=== PATIENT | female | born 1965 | race Caucasian/White ===

== ENCOUNTER → 2016-08-18 | Outpatient (CLI) | payer OTHER | LOC: BMCIMAGING 15:23 | PROVIDERS: ATTEND Orthopaedic Surgery | DX: S82.292D Other fracture of shaft of left tibia, subsequent encounter for closed fracture with routine healing (principal); Z96.652 Presence of left artificial knee joint ==

== ENCOUNTER 2017-03-18 17:51 | Inpatient (IN) | payer OTHER ==
--- NOTE | 2017-03-18 20:10 | EDPHY ---
H & P Stated Complaint: FELL INJURED L WRIST AND L ANKLE Time Seen by Provider: 03/18/17 19:50 HPI/ROS: CHIEF COMPLAINT: Left ankle and left wrist pain HISTORY OF PRESENT ILLNESS: 51-year-old female arrives via private vehicle, not a trauma activation, after she sustained a mechanical fall, complaining of left wrist and left ankle pain. She borrowed a neighbor's crutches and had a friend drive her to the ER. She is unable to bear weight under left lower extremity. No head injury. No peripheral paresthesia, weakness, numbness. No midline C-spine pain. No pelvic pain. No straddle injury. No chest pain. This was purely mechanical incident with no syncope. No anticoagulant use PRIMARY CARE PROVIDER: [facility] medical REVIEW OF SYSTEMS: A ten point review of systems was performed and is negative with the exception of the items mentioned in the HPI PAST MEDICAL/SURGICAL HISTORY: no anticoagulant use, SOCIAL HISTORY: Lives by herself. PHYSICAL EXAM 1) GENERAL: Well-developed, well-nourished, alert and oriented. Appears uncomfortable . Answering questions appropriately. 2) HEAD: Normocephalic, atraumatic 3) HEENT: Pupils equal, round, reactive to light bilaterally. Negative Horners. Nasopharynx, oropharynx, clear. No deformity or angulation of nose. No septal hematoma. No rhinorrhea. No oral trauma. Ears bilaterally with normal tympanic membranes. No hemotympanum. No fluid or blood in the external auditory canal. No raccoon eyes. No Ulrich sign. Teeth are normally aligned with no gross malocclusion, TMJ bilaterally nontender, facial bones nontender including the zygomatic arch, maxilla mandible. 4) NECK: No cervical collar is on. Posterior cervical spine is nontender, no stepoff, no effusion. Full range of motion which does not elicit any midline cervical spine pain, no posterior midline tenderness, no step-off. 5) LUNGS: Clear to auscultation bilaterally, no wheezes, no rhonchi, no retractions. No obvious signs of trauma. No chest wall pain. No flaring, no grunting. Moving symmetrically. No crepitus. 6) HEART: Regular rate and rhythm, 7) ABDOMEN: No guarding, no rebound, no focal tenderness, no peritoneal signs, no signs of trauma, no ecchymosis 8) MUSCULOSKELETAL: Left upper extremity: Intact skin, tender to palpation wrist. Nontender proximally with no evidence of trauma. Radial ulnar median nerve function intact distally with brisk pulses. Left lower extremity: Tender to palpation medial lateral malleolus with noted ecchymosis with noted deformity. No puncture wound. Intact skin. No tenting of skin. Foot is nontender. DP PT pulses present and brisk with brisk capillary refill normal color normal temperature distally. Proximally nontender. Knee nontender. Fibular head nontender. Knee nontender. Otherwise, remainder of musculoskeletal examination is unremarkable with no evidence of trauma no complaints of pain. 9) BACK: No midline vertebral tenderness, no fluctuance, no step-off, no obvious trauma, no visual or palpable abnormality. 10) SKIN: No laceration. No abrasion DIFFERENTIAL DIAGNOSIS: In no particular include but limited to fracture, dislocation, compartment syndrome, sprain, strain - Personal History LMP (Females 10-55): Post Menopausal Current Tetanus Diphtheria and Acellular Pertussis (TDAP): Yes Tetanus Vaccine Date: < 10 YEARS - Medical/Surgical History Hx Asthma: No Hx Chronic Respiratory Disease: No Hx Diabetes: No Hx Cardiac Disease: No Hx Renal Disease: No Hx Cirrhosis: No Hx Alcoholism: No Hx HIV/AIDS: No Hx Splenectomy or Spleen Trauma: No Other PMH: GERD, tibia plateau fx. - Social History Smoking Status: Current every day smoker Constitutional: Initial Vital Signs Temperature (C) 36.6 C 03/18/17 18:12 Heart Rate 72 03/18/17 18:12 Respiratory Rate 16 03/18/17 18:12 Blood Pressure 99/71 L 03/18/17 18:12 O2 Sat (%) 95 03/18/17 18:12 O2 Delivery Mode Room Air Allergies/Adverse Reactions: Penicillins Allergy (Verified 03/18/17 20:40) Swelling/neck,face,throat Sulfa (Sulfonamide Antibiotics) Allergy (Verified 03/18/17 20:40) Swelling/neck,face,throat WALNUT Allergy (Uncoded 03/18/17 18:17) Home Medications: Medication Instructions Recorded Acetaminophen [Tylenol 325mg (*)] 650 mg PO Q6H PRN 03/18/17 Fluoxetine HCl [Prozac 40 mg] 40 mg PO DAILY 03/18/17 Medical Decision Making - Diagnostics Imaging Results: Imaging Impressions Ankle X-Ray 03/18/17 18:20 Impression: 1. Unstable bimalleolar left ankle fracture with comminuted distal fibular fracture fragments. 2. Medial and lateral talar avulsion fractures also noted. Wrist X-Ray 03/18/17 18:20 Impression: 1. Comminuted impacted intra-articular distal left radius fracture with dorsal angulation. 2. Ulnar styloid fracture. Tibia/Fibula X-Ray 03/18/17 20:09 Impression: Unstable comminuted bimalleolar fracture of the left ankle with lateral displacement of the talus. Ankle X-Ray 03/18/17 21:26 Impression: Comminuted bimalleolar unstable left ankle fracture, with persistent lateral subluxation of the talar dome and displaced fragments. Wrist X-Ray 03/18/17 21:26 Impression: Improved alignment postreduction of comminuted distal left radius intra-articular fracture and ulnar styloid fracture. Images reviewed myself images Procedures: Procedure: Fracture reduction 1. Indication: Fracture of the left wrist Indications, risks and benefits discussed with patient and consent obtained. A hematoma block of 0.5% bupivicaine placed by myself. Traction and countertraction applied achieving a visible and palpable reduction. The area was splinted with an Ortho Glass sugar-tong splint. After application of the splint I returned and re-examined the patient. The splint was adequately immobilizing the joint and distal to the splint the patient's circulation and sensation were intact. Patient shows no signs of compartment syndrome. Procedure: Fracture reduction 2. Indication: Fracture of the left ankle Indications, risks and benefits discussed with patient and consent obtained.Traction and countertraction applied achieving a visible and palpable reduction. The area was splinted with a 3 way Ortho Glass above the knee splint After application of the splint I returned and re-examined the patient. The splint was adequately immobilizing the joint and distal to the splint the patient's circulation and sensation were intact. Patient shows no signs of compartment syndrome. ED Course/Re-evaluation: This patient has been re-evaluated with serial examinations both pre and post reduction. She remains neurovascularly intact no evidence of compartment syndrome, strong pulses, pain controlled. She remains NPO. Due to the complexity of the patient's injuries involving both her left upper and left lower extremity recommended admission which he is agreeable with. She has isolated orthopedic injuries. Plan will be admission to the hospitalist service. I discussed the case with secondary to superimposition Dr. Cee in the ER 10:00 p.m.: Phone consultation Dr. Andi Handy. Due to the patient's injuries, namely immobilization of the left upper and left lower extremities, she lives by herself, she is unable to ambulate with crutches, recommended admission. Consulted with Dr. Andi Handy at this time, he will plan on surgery tomorrow, recommended she remain NPO after midnight. 10:28 p.m.: Phone consultation with Dr. Silver, hospitalist who will admit patient - Data Points Laboratory Results: Laboratory Results 03/18/17 20:30 03/18/17 20:30 03/18/17 03/18/17 03/18/17 20:30 20:30 20:30 WBC 8.52 10^3/uL 10^3/uL (3.80-9.50) RBC 4.17 10^6/uL L 10^6/uL (4.18-5.33) Hgb 15.3 g/dL g/dL (12.6-16.3) Hct 42.8 % % (38.0-47.0) MCV 102.6 fL H fL (81.5-99.8) MCH 36.7 pg H pg (27.9-34.1) MCHC 35.7 g/dL g/dL (32.4-36.7) RDW 12.3 % % (11.5-15.2) Plt Count 122 10^3/uL L 10^3/uL (150-400) MPV 10.0 fL fL (8.7-11.7) Neut % (Auto) 83.1 % H % (39.3-74.2) Lymph % (Auto) 10.1 % L % (15.0-45.0) [place] % (Auto) 5.8 % % (4.5-13.0) Eos % (Auto) 0.0 % L % (0.6-7.6) Baso % (Auto) 0.6 % % (0.3-1.7) Nucleat RBC Rel Count 0.0 % % (0.0-0.2) Absolute Neuts (auto) 7.09 10^3/uL H 10^3/uL (1.70-6.50) Absolute Lymphs (auto) 0.86 10^3/uL L 10^3/uL (1.00-3.00) Absolute Monos (auto) 0.49 10^3/uL 10^3/uL (0.30-0.80) Absolute Eos (auto) 0.00 10^3/uL L 10^3/uL (0.03-0.40) Absolute Basos (auto) 0.05 10^3/uL 10^3/uL (0.02-0.10) Absolute Nucleated RBC 0.00 10^3/uL 10^3/uL (0-0.01) Immature Gran % 0.4 % % (0.0-1.1) Immature Gran # 0.03 10^3/uL 10^3/uL (0.00-0.10) PT 13.3 SEC SEC (12.0-15.0) INR 1.02 (0.83-1.16) APTT 22.4 SEC L SEC (23.0-38.0) Sodium 138 mEq/L mEq/L (134-144) Potassium 4.1 mEq/L mEq/L (3.5-5.2) Chloride 104 mEq/L mEq/L (97-110) Carbon Dioxide 16 mEq/l L mEq/l (22-31) Anion Gap 18 mEq/L H mEq/L (8-16) BUN 8 mg/dL mg/dL (7-23) Creatinine 0.5 mg/dL L mg/dL (0.6-1.0) Estimated GFR > 60 Glucose 92 mg/dL mg/dL (70-100) Calcium 9.9 mg/dL mg/dL (8.5-10.4) Medications Given: Discontinued Medications Fentanyl (Sublimaze) 100 mcg IVP EDNOW ONE Stop: 03/18/17 20:14 Last Admin: 03/18/17 20:39 Dose: 100 mcg Departure - Departure Disposition: [facility] Clinical Impression: Closed bimalleolar fracture of left ankle Qualifiers: Encounter type: initial encounter Qualified Code(s): S82.842A - Displaced bimalleolar fracture of left lower leg, initial encounter for closed fracture Fracture of left distal radius Qualifiers: Encounter type: initial encounter Fracture type: closed Fracture morphology: other intra-articular Qualified Code(s): S52.572A - Other intraarticular fracture of lower end of left radius, initial encounter for closed fracture Condition: Fair
[2017-03-18] MEDS ORDERED: fentaNYL 100 MCG/2 ML INJ IVP ONE (20:13)
[2017-03-18 20:46] LABS: % IMMATURE GRANULYOCYTES 0.4 % (0.0-1.1); ABSOLUTE IMMATURE GRANULOCYTES 0.03 10^3/uL (0.00-0.10); ADD DIFF? NO; ADD MORPH? NO; ADD SCAN? NO; ATYPICAL LYMPHOCYTE FLAG 10 (0-99); FRAGMENT RBC FLAG 0 (0-99); HEMATOCRIT 42.8 % (38.0-47.0); HEMOGLOBIN 15.3 g/dL (12.6-16.3); LEFT SHIFT FLG 0 (0-99); LIPEMIA HEMOLYSIS FLAG 90 (0-99); MEAN CELL HEMOGLOBIN 36.7 pg (27.9-34.1); MEAN CELL HEMOGLOBIN CONCENTR. 35.7 g/dL (32.4-36.7); MEAN CELL VOLUME 102.6 fL (81.5-99.8); PLATELET CLUMPS FLAG 0 (0-99); PLATELET COUNT 122 10^3/uL (150-400); RED BLOOD CELL COUNT 4.17 10^6/uL (4.18-5.33); RED CELL DISTRIBUTION WIDTH 12.3 % (11.5-15.2)
[2017-03-18 20:55] LABS: INR 1.02 (0.83-1.16); PROTIME(PATIENT) 13.3 SEC (12.0-15.0)
[2017-03-18 20:56] LABS: APTT 22.4 SEC (23.0-38.0)
[2017-03-18 21:02] LABS: ANION GAP 18 mEq/L (8-16); CALCIUM 9.9 mg/dL (8.5-10.4); CARBON DIOXIDE 16 mEq/l (22-31); CHLORIDE 104 mEq/L (97-110); CREATININE 0.5 mg/dL (0.6-1.0); GLOMERULAR FILTRATION RATE > 60; GLUCOSE 92 mg/dL (70-100); POTASSIUM 4.1 mEq/L (3.5-5.2); SODIUM 138 mEq/L (134-144)
[2017-03-18] MEDS ORDERED: PROMETHAZINE HCL 25 MG/ML INJ IVP PRN (23:14)
[2017-03-18] MEDS ORDERED: NICOTINE 14 MG/24 HR PATCH TD PRN (23:14)
[2017-03-18] MEDS ORDERED: ACETAMINOPHEN 325 MG TAB PO PRN (23:14)
[2017-03-18] MEDS ORDERED: LORazepam 2 MG/ML INJ IVP PRN (23:14)
[2017-03-18] MEDS ORDERED: LORazepam 0.5 MG TAB PO PRN (23:14)
[2017-03-18] MEDS ORDERED: ONDANSETRON DISINTEGRATING 4 MG TAB PO PRN (23:14)
[2017-03-18] MEDS ORDERED: ACETAMINOPHEN 650 MG SUPP PR PRN (23:14)
[2017-03-18] MEDS ORDERED: ONDANSETRON 4 MG/2 ML VIAL IVP PRN (23:14)
[2017-03-19] MEDS: HYDROCODONE/APAP 5/325 TAB PO PRN ×3 (00:31→21:26)
--- NOTE | 2017-03-19 00:38 | GHP ---
[f rep st] HISTORY AND PHYSICAL DATE OF ADMISSION: 03/18/2017 SOURCE OF HISTORY: Patient provides history, appears reliable. Her EMR was also reviewed. CHIEF COMPLAINT: Left wrist and left ankle pain after fall. HISTORY OF PRESENT ILLNESS: A very pleasant 51-year-old female with past medical history significant for anxiety and depression, who presents to the emergency department today by private vehicle follow ing a mechanical fall at home. Patient reports that she was moving items from her home to her car, a nd there were several cement steps, and she feels like her knee may have given out, and she fell on h er left side. Patient subsequently had left wrist and left ankle pain. She denies any preceding jayce st pain, palpitations, shortness of breath, or lightheadedness. Patient denies any head injury or lo ss of consciousness. The patient was able to get a ride from a friend to the emergency department, b ut does live alone. REVIEW OF SYSTEMS: GENERAL: The patient reports occasional sweats and she is unsure if this is rela aleksander to anxiety or panic versus premenopausal flushing. She denies any fevers or chills, however. SK IN: No rashes or sores. ENT: Patient denies any congestion, sore throat. EYES: Patient reports p rogressive decline in vision and wears readers and glasses for driving. Otherwise, no acute changes in vision. CARDIOVASCULAR: No chest pain, palpitations. RESPIRATORY: No shortness of breath or co ugh. GI: Patient does report some underlying chronic nausea that is exacerbated by her anxiety. Sh e reports constant stomach upset related to anxiety symptoms. She denies any melena or hematochezia. : No dysuria or hematuria. MUSCULOSKELETAL: Patient complaining of left wrist and left ankle p ain. Otherwise, denies any myalgias. NEURO: Patient denies any headache. No numbness or tingling. PSYCH: Patient reports anxiety, depression. Denies any SI or HI. ALLERGIES: Penicillin, sulfa, and walnuts. Patient reports she develops some throat tingling, itchi ng and swelling. She reports a previous history of exposure to cephalosporins without any incident. MEDICATIONS: Patient has a recent increase in her fluoxetine from 20-40 mg, and Tylenol p.r.n., occa sional multivitamin. PAST MEDICAL HISTORY: Significant for depression, anxiety, and the patient reports she had a postope rative wound infection with Staph that is possibly MRSA. PAST SURGICAL HISTORY: Significant for tibial plateau fracture in 2016, status post revision with pa rtial knee replacement per the patient. FAMILY HISTORY: Patient denies any known osteoporosis, diabetes, coronary artery disease, or other m edical issues. SOCIAL HISTORY: Patient is single. She lives alone. She does smoke approximately 1 pack per day fo r the past 30 years. She denies any illicit drug use or marijuana. The patient does drink 2-3 glass es of wine on a daily basis, and denies any history of withdrawal symptoms. PHYSICAL EXAM: VITAL SIGNS: On arrival to the emergency department, blood pressure 99/71, heart rat e 72, respiratory rate 16, O2 saturation 95% on room air with a temperature 36.6. Current vitals: B lood pressure 119/65, heart rate 75, respiratory rate 16, O2 saturation 94% on room air, with a temp of 37.1. GENERAL: No acute distress. Very pleasant adult female, is lying comfortably in bed, eati ng a snack. Her left arm including the hand and left lower extremity are in a splint. HEAD: Normoc ephalic, atraumatic. EYES: Extraocular muscles are intact. Pupils equal, round, with the left pupi l slightly larger than the right, but reactive to light. No scleral icterus, conjunctival injection. ENT: Mucous membranes appear moist. No oropharyngeal erythema or exudates. NECK: Supple. Trach ea midline. CARDIOVASCULAR: Regular rate and rhythm. No murmurs, rubs, or gallops appreciated. RE SPIRATORY: Lungs are clear to auscultation bilaterally. No wheezes, rales, or rhonchi. ABDOMEN: P ositive bowel sounds. Soft, nontender to palpation. No rebound, guarding or masses. : No suprap ubic tenderness to palpation. No Michael catheter in place. MUSCULOSKELETAL: Left arm and left lower extremity are in splint. She is able to move her right upper and lower extremity unrestricted. Sen sation is intact to the distal upper and lower extremity on the left with less than 2-second capillar y refill. NEURO: Cranial nerves 2-12 intact, symmetric bilaterally. Patient is awake, alert, orien aleksander x4. Able to move all extremities with limitations to the splinted left arm and leg. PSYCH: The patient does appear a little bit anxious, but she is pleasant, cooperative and otherwise appropriate . LABORATORY STUDIES: WBC 8.52, H and H 13.3 and 42.8, MCV of 102.6, platelet count 122, neutrophil pe rcent 83.1 without any noted bandemia. PT is 13.3, INR 1.02, PTT is 22.4. Sodium 138, potassium 4.1 , chloride 104, CO2 16, anion gap 18, BUN 8, creatinine 0.5, GFR of greater than 60, glucose 92, calc ium 9.9. IMAGING: Report and image reviewed by myself, showing unstable bimalleolar left ankle fracture with comminuted distal fibular fracture fragments, medial and lateral talar avulsion fractures. Left wrist x-ray showing comminuted impacted intra-articular distal left radius fracture with dorsal angulation. Ulnar styloid fracture. Imaging and report reviewed. Tib-fib x-ray showing again the unstable comminuted bimalleolar fracture, left ankle and comminuted o blique distal left fibular fracture, transverse fracture of the distal tibia and medial malleolus. L eft knee hemiarthroplasty. No fracture of the mid tibia or fibula. ASSESSMENT AND PLAN: This is a pleasant 51-year-old female status post mechanical fall, now with lef t wrist and ankle fracture. 1. Bimalleolar fracture, status post reduction, in splint. Dr. Handy was consulted from the emerge ncy department and plans to take the patient to the operating room tomorrow. She will be made n.p.o. , holding anticoagulation. We will obtain an MRSA nasal swab as patient reports a staph infection pr eviously. She is unclear if it was methicillin-resistant Staphylococcus aureus. 2. Left wrist fracture, status post reduction. Same plan as above. 3. Acute pain due to trauma, status post dose of fentanyl in the emergency department. We will make [place] and morphine available for the patient p.r.n., currently comfortable. 4. History of wound infection, possibly methicillin-resistant Staphylococcus aureus. Will obtain a nasal swab preoperatively. 5. Anxiety and depression. Resume patient's fluoxetine. We will obtain a preoperative EKG, given p atient's dosage has been increased. 6. Tobacco dependence of 30 pack-year history. Nicotine patch will be made available p.r.n. Cessat ion will be encouraged. 7. History of alcohol use daily. The patient drinks 2-3 glasses of wine on a daily basis. Denies a ny previous history of withdrawal. Will monitor closely. She does have Ativan p.r.n. for her anxiet y. 8. Fluid, electrolytes, nutrition: Patient will receive intravenous fluids overnight while she is n il per os. Electrolytes will be replaced if needed. The patient has diet at bedside currently, will be nil per os after midnight. 9. Prophylaxis. Sequential compression device to the right lower extremity, holding anticoagulation perioperatively. 10. Code status is full. 11. Disposition: Patient admitted to observation on the Med/Surg floor as she lives alone and almaz cline is unable to ambulate with her current fracture on the left upper and lower extremity. 12. The patient appears to be low cardiac risk for complications related to surgery. There are no c ontraindications to proceed tomorrow. Again, will obtain a preoperative electrocardiogram to evaluat e as patient is chronically on fluoxetine and may be receiving additional medications potentially pro longing QT, so we will evaluate for this. /[id number]/MODL
[2017-03-19] MEDS: NS 1,000 ML IV SCH ×2 (01:03→09:59)
[2017-03-19 01:06] LABS: COLOR YELLOW; LEUKOCYTE ESTERASE,URINE 3+ (NEGATIVE); NITRITE,URINE NEGATIVE (NEGATIVE)
[2017-03-19 01:08] LABS: BACTERIA TRACE /hpf (NONE SEEN); MUCUS 1+ /lpf (NONE-1+); RBC,URINE 25-50 /hpf (0-3); WBC,URINE 25-50 /hpf (0-3)
[2017-03-19 05:19] LABS: % IMMATURE GRANULYOCYTES 1.4 % (0.0-1.1); ABSOLUTE IMMATURE GRANULOCYTES 0.11 10^3/uL (0.00-0.10); ADD DIFF? NO; ADD MORPH? NO; ADD SCAN? NO; ATYPICAL LYMPHOCYTE FLAG 40 (0-99); FRAGMENT RBC FLAG 0 (0-99); HEMATOCRIT 40.1 % (38.0-47.0); HEMOGLOBIN 14.1 g/dL (12.6-16.3); LEFT SHIFT FLG 10 (0-99); LIPEMIA HEMOLYSIS FLAG 90 (0-99); MEAN CELL HEMOGLOBIN 36.2 pg (27.9-34.1); MEAN CELL HEMOGLOBIN CONCENTR. 35.2 g/dL (32.4-36.7); MEAN CELL VOLUME 103.1 fL (81.5-99.8); MEAN PLATELET VOLUME 10.2 fL (8.7-11.7); PLATELET CLUMPS FLAG 0 (0-99); PLATELET COUNT 112 10^3/uL (150-400); RED BLOOD CELL COUNT 3.89 10^6/uL (4.18-5.33); RED CELL DISTRIBUTION WIDTH 12.2 % (11.5-15.2)
[2017-03-19 05:23] LABS: INR 1.05 (0.83-1.16); PROTIME(PATIENT) 13.6 SEC (12.0-15.0)
[2017-03-19 05:24] LABS: APTT 24.2 SEC (23.0-38.0)
[2017-03-19 05:31] LABS: ANION GAP 13 mEq/L (8-16); CARBON DIOXIDE 20 mEq/l (22-31); CHLORIDE 101 mEq/L (97-110); CREATININE 0.6 mg/dL (0.6-1.0); GLOMERULAR FILTRATION RATE > 60; GLUCOSE 91 mg/dL (70-100); POTASSIUM 4.1 mEq/L (3.5-5.2); SODIUM 134 mEq/L (134-144)
--- NOTE | 2017-03-19 07:07 | GCON ---
[f rep st] CONSULTATION DATE OF CONSULTATION: 03/19/2017 REASON FOR CONSULTATION: Left ankle, left wrist injury. HISTORY RELATIVE TO THE CONSULTATION: The patient is a 51-year-old right-hand dominant woman who ashley tained a fall down some stairs resulting in left ankle and left wrist pain and deformity. She presen aleksander to the emergency room with difficulty weightbearing. She does have a history of previous left ti bial fracture which was treated with open reduction, internal fixation in 2014. EXAMINATION: The left ankle is in a well-padded splint. Upon partial removal, there is moderate swe lling with no blistering or gross deformity. Her distal neurovascular exam is intact. Examination l eft upper extremity reveals it to be in a well-padded sugar-tong splint. There is moderate swelling in her fingers. Radial, ulnar, and median nerves are grossly intact with no evidence of median nerve compression. IMAGING: AP and lateral radiographs of the left ankle show a left trimalleolar ankle fracture with i nitial displacement which is now unfavorable alignment in a well-padded splint. AP and lateral radio graphs of the left wrist show evidence of a comminuted intra-articular left distal radius fracture wi th impaction and dorsal angulation. ASSESSMENT: 1. Left trimalleolar ankle fracture. 2. Left distal radius fracture. PLAN: Based on the displaced intra-articular natures of the injuries, it is recommended operative tr eatment consisting of open reduction, internal fixation of both these be pursued. This will be sched uled for later today. /[id number]/MODL
[2017-03-19] MEDS: FLUoxetine 20 MG CAP PO SCH (08:44)
--- NOTE | 2017-03-19 08:48 | HOSPPROG ---
Hospitalist Progress Note Assessment/Plan: Patient is a 51-year-old female who presented the emergency room after sustaining a mechanical fall at home. She is moving items from her home to her car and there are several steps. She feels like her knee may have given out and she fell. Today is my 1st encounter with the patient. Chart reviewed. *Bimalleolar fx Status post reduction and in a splint To go to OR today *Left wrist fx same as the above/ OR today w Dr Handy *Pain due to the above meds ordered *Anxiety and Depression home meds resumed *hx of wound infection will monitor s/sx *nicotine dependence patch provided *alcohol use drinks wine at night/ 2-3 glasses *Plan: OR today/ she lives alone so will need help at dc/will see how she does w PT and OT Subjective: Afshan says her pain is well managed. Objective: Vital Signs Temp Pulse Resp BP Pulse Ox 37.0 C 75 16 155/95 H 95 03/19/17 08:28 03/19/17 08:28 03/19/17 08:28 03/19/17 08:28 03/19/17 08:28 Laboratory Results 03/19/17 04:47 03/19/17 04:47 PT 13.6 SEC (12.0-15.0) 03/19/17 04:47 INR 1.05 (0.83-1.16) 03/19/17 04:47 - Physical Exam Constitutional: no apparent distress Eyes: PERRL Ears, Nose, Mouth, Throat: hearing normal Respiratory: no respiratory distress Gastrointestinal: normoactive bowel sounds Skin: warm Musculoskeletal: muscular tenderness Neurologic: AAOx3 Psychiatric: interacting appropriately ICD10 Worksheet Patient Problems: Problems Problem Status Onset Closed bimalleolar fracture of left ankle Acute Fracture of left distal radius Acute Tibial plateau fracture Acute
[2017-03-19] MEDS ORDERED: CLINDAMYCIN 600 MG/DEXTROSE 50 ML IV ONE (14:55)
[2017-03-19] MEDS ORDERED: morphINE PCA 30 MG/30 ML PCA IV PRN (15:04)
[2017-03-19] MEDS ORDERED: NALOXONE HCL 0.4 MG/ML INJ IVP PRN ×2 (15:04→18:38)
--- NOTE | 2017-03-19 15:12 | POSTOPPROG ---
Post Op Note Date of Operation: 03/19/17 Surgeon: Andi Handy Anesthesia: GET(General Endotracheal) Pre-op Diagnosis: L distal radius fx, L trimalleilar ankle fx Post-op Diagnosis: same Procedure: ORIF L distal radius, ORIF L trimalleolar fx Inf/Abcess present in the surg proc area at time of surgery?: No EBL: Minimal
[2017-03-19] MEDS ORDERED: D5W 1/2 NS W/ 20 KCl/L 1,000 ML IV SCH (15:15)
[2017-03-19] MEDS ORDERED: MIDAZOLAM 2 MG/2 ML VIAL IVP ONE (15:24)
--- NOTE | 2017-03-19 15:24 | PDANEPAE ---
ANE History of Present Illness L wrist and ankle ORIF ANE Past Medical History - Cardiovascular History Hx Hypertension: No Hx Arrhythmias: No Hx Chest Pain: No Hx Coronary Artery / Peripheral Vascular Disease: No Hx CHF / Valvular Disease: No Hx Palpitations: No - Pulmonary History Hx COPD: No Hx Asthma/Reactive Airway Disease: No Hx Recent Upper Respiratory Infection: No Hx Oxygen in Use at Home: No Hx Sleep Apnea: No Sleep Apnea Screening Result - Last Documented: Positive - Neurologic History Hx Cerebrovascular Accident: No Hx Seizures: No Hx Dementia: No - Endocrine History Hx Diabetes: No - Renal History Hx Renal Disorders: No - Liver History Hx Hepatic Disorders: No - Neurological & Psychiatric Hx Hx Neurological and Psychiatric Disorders: No - Cancer History Hx Cancer: No - Congenital Disorder History Hx Congenital Disorders: No - GI History Hx Gastrointestinal Disorders: Yes Gastrointestinal History Comment: gerd - Other Health History Other Health History: none - Chronic Pain History Chronic Pain: No - Surgical History Prior Surgeries: egd. orif right tibial plateau fx with lynne 06/16/14 ANE Review of Systems Review of systems is: negative Review of Systems: - Exercise capacity Exercise capacity: >=4 METS ANE Patient History - Allergies Allergies/Adverse Reactions: Penicillins Allergy (Verified 03/18/17 20:40) Swelling/neck,face,throat Sulfa (Sulfonamide Antibiotics) Allergy (Verified 03/18/17 20:40) Swelling/neck,face,throat WALNUT Allergy (Uncoded 03/18/17 18:17) - Home Medications Home medications: home medication list seen and reviewed Home Medications: Acetaminophen [Tylenol 325mg (*)] 650 mg PO Q6H PRN 03/18/17 [Last Taken Unknown ] Fluoxetine HCl [Prozac 40 mg] 40 mg PO DAILY 03/18/17 [Last Taken 03/18/17] - NPO status NPO Status: no food or drink >8 hours NPO Since - Liquids (Date): 03/18/17 NPO Since - Liquids (Time): 12:05 NPO Since - Solids (Date): 03/18/17 NPO Since - Solids (Time): 23:45 - Anes Hx Anes Hx: no prior problems - Smoking Hx Smoking Status: Current every day smoker - Family Anes Hx Family Anes Hx: none Family Hx Anesthesia Complications: none ANE Labs/Vital Signs - Labs Result Diagrams: 03/19/17 04:47 03/19/17 04:47 - Vital Signs Blood Pressure: 178/99 Heart Rate: 68 Respiratory Rate: 14 O2 Sat (%): 93 Height: 160.02 cm Weight: 61.235 kg ANE Physical Exam - Airway Neck exam: FROM Mallampati Score: Class 3 Mouth exam: normal dental/mouth exam - Pulmonary Pulmonary: no respiratory distress - Cardiovascular Cardiovascular: regular rate and rhythym - ASA Status ASA Status: II ANE Anesthesia Plan Anesthesia Plan: GA w LMA
[2017-03-19] MEDS ORDERED: BUPIVACAINE 0.5% 30 ML SDV ONE (15:26)
[2017-03-19] MEDS ORDERED: MIDAZOLAM 2 MG/2 ML VIAL ONE (15:39)
[2017-03-19] MEDS ORDERED: PROPOFOL 200 MG/20 ML VIAL ONE (15:48)
[2017-03-19] MEDS ORDERED: ONDANSETRON 4 MG/2 ML VIAL ONE (15:48)
[2017-03-19] MEDS ORDERED: DEXAMETHASONE 4 MG/ML VIAL ONE (15:48)
[2017-03-19] MEDS ORDERED: LIDOCAINE 2% 100 MG/5 ML SYR ONE (15:48)
[2017-03-19] MEDS ORDERED: HYDROmorphONE/DILAUDID 2 MG/ML INJ ONE (16:03)
[2017-03-19] MEDS ORDERED: PROMETHAZINE HCL 25 MG/ML INJ IVP PRN (18:38)
[2017-03-19] MEDS ORDERED: OXYCODONE/APAP 5/325 TAB PO PRN (18:38)
[2017-03-19] MEDS ORDERED: fentaNYL 100 MCG/2 ML INJ IVP PRN (18:38)
[2017-03-19] MEDS ORDERED: ONDANSETRON 4 MG/2 ML VIAL IVP PRN (18:38)
[2017-03-19] MEDS ORDERED: ACETAMINOPHEN 500 MG TAB PO PRN (18:38)
[2017-03-19] MEDS ORDERED: MEPERIDINE 25 MG/ML SYR IVP PRN (18:38)
[2017-03-19] MEDS ORDERED: ALBUTEROL 3 ML DEYVIAL IH PRN (18:38)
[2017-03-19] MEDS ORDERED: DEXAMETHASONE 4 MG/ML VIAL IVP PRN (18:38)
[2017-03-19] MEDS ORDERED: HYDROCODONE/APAP 5/325 TAB PO PRN (18:38)
[2017-03-19] MEDS ORDERED: HYDROmorphONE/DILAUDID 1 MG/ML INJ IVP PRN (18:38)
--- NOTE | 2017-03-19 18:40 | POSTANESTH ---
Post Anesthetic Evaluation Cardiovascular Status: Similar to Pre-Op Cond Respiratory Status: Normal, Stable, Similar to Pre-op Cond. Level of Consciousness/Mental Status: Can Participate in Eval, Mildly Sleepy, Arousable Pain Control: Adequate, Prn Tx Ordered Nausea/Vomiting Control: Adequate, Prn Tx Ordered
--- NOTE | 2017-03-19 19:04 | ASMTCMCOM ---
CM Note CM Note Notes: Pt fell at home, lives alone, has hx anxiety/depression and drinks 2-3 glasses wine daily per H&P. She went to surg today, will see how she does w/therapies tomorrow and plan for dc as needed. Date Signed: 03/19/2017 07:04 PM Electronically Signed By:Shasha Lindo RN
[2017-03-19] MEDS ORDERED: LABETALOL HCL 5 MG/ML 20 ML MDV ONE (19:07)
[2017-03-19] MEDS: LABETALOL HCL 50 MG/10 ML SYR IVP PRN ×2 (19:09→19:31)
[2017-03-19] MEDS: CLINDAMYCIN 600 MG/DEXTROSE 50 ML IV SCH (21:23)
[2017-03-20] MEDS: HYDROCODONE/APAP 5/325 TAB PO PRN ×5 (03:49→20:44)
[2017-03-20] MEDS: CLINDAMYCIN 600 MG/DEXTROSE 50 ML IV SCH ×2 (05:14→13:20)
[2017-03-20 05:30] LABS: % IMMATURE GRANULYOCYTES 0.5 % (0.0-1.1); ABSOLUTE IMMATURE GRANULOCYTES 0.03 10^3/uL (0.00-0.10); ADD DIFF? NO; ADD MORPH? NO; ADD SCAN? NO; ATYPICAL LYMPHOCYTE FLAG 0 (0-99); FRAGMENT RBC FLAG 0 (0-99); HEMOGLOBIN 12.6 g/dL (12.6-16.3); LEFT SHIFT FLG 0 (0-99); LIPEMIA HEMOLYSIS FLAG 90 (0-99); MEAN CELL HEMOGLOBIN 36.5 pg (27.9-34.1); MEAN CELL VOLUME 104.3 fL (81.5-99.8); MEAN PLATELET VOLUME 10.7 fL (8.7-11.7); PLATELET CLUMPS FLAG 10 (0-99); PLATELET COUNT 101 10^3/uL (150-400); RED BLOOD CELL COUNT 3.45 10^6/uL (4.18-5.33); RED CELL DISTRIBUTION WIDTH 11.8 % (11.5-15.2)
[2017-03-20 05:49] LABS: ALANINE AMINOTRANSFERASE 83 IU/L (9-52); ALBUMIN 3.5 g/dL (3.5-5.0); ALKALINE PHOSPHATASE 70 IU/L (38-126); ANION GAP 8 mEq/L (8-16); ASPARTATE AMINOTRANSFERASE 46 IU/L (14-46); CALCIUM 8.8 mg/dL (8.5-10.4); CARBON DIOXIDE 23 mEq/l (22-31); CHLORIDE 99 mEq/L (97-110); CREATININE 0.6 mg/dL (0.6-1.0); GLOMERULAR FILTRATION RATE > 60; GLUCOSE 216 mg/dL (70-100); POTASSIUM 4.4 mEq/L (3.5-5.2); SODIUM 130 mEq/L (134-144); TOTAL PROTEIN 5.9 g/dL (6.3-8.2)
[2017-03-20] MEDS ORDERED: FLU VACC QS 2017-18 (3YR+)/PF 0.5 ML SYR (FLUARIX QUAD) IM ONE (06:59)
[2017-03-20] MEDS ORDERED: PNEUMOCOCCAL 0.5ML VACCINE VIAL IM ONE (06:59)
[2017-03-20] MEDS: FLUoxetine 20 MG CAP PO SCH (08:37)
--- NOTE | 2017-03-20 09:27 | SOAPPROG ---
SOAP Progress Note Assessment/Plan: Assessment: S/P ORIF L distal radius / L trimalleolar ankle fx Pain tolerable el po up with PT Splints intact No D/C L fingers and toes with good cap refill, + sensation Able to flex/ext fingers and toes Plan: OOB/PT OK for D/C or transfer toSNF or rehab from ortho standpoint when medically stable F/U 03/28/17 03/20/17 09:24 Objective: Vital Signs Temp Pulse Resp BP Pulse Ox 36.7 C 71 17 141/96 H 93 03/20/17 07:52 03/20/17 07:52 03/20/17 07:52 03/20/17 07:52 03/20/17 07:52 Laboratory Results 03/20/17 04:34 03/20/17 04:34 03/19/17 03/20/17 03/21/17 05:59 05:59 05:59 Intake Total 2000 Output Total 900 Balance 1100 PT 13.6 SEC (12.0-15.0) 03/19/17 04:47 INR 1.05 (0.83-1.16) 03/19/17 04:47 ICD10 Worksheet Patient Problems: Problems Problem Status Onset Closed bimalleolar fracture of left ankle Acute Fracture of left distal radius Acute Tibial plateau fracture Acute
--- NOTE | 2017-03-20 09:30 | HOSPPROG ---
Hospitalist Progress Note Assessment/Plan: Afshan is a 51-year-old female who presented the emergency room after sustaining a mechanical fall at home. She is moving items from her home to her car and there are several steps. She feels like her knee may have given out and she fell. *Bimalleolar fx Status post ORIF *Left wrist fx Status post ORIF meds ordered *Anxiety and Depression home meds resumed/Prozac resumed has a therapist she sees in the OP setting asked Dayanara Marcel to see * hyponatremia with a sodium of 130 *hx of wound infection will monitor s/sx *nicotine dependence patch provided *alcohol use drinks wine at night/ 2-3 glasses ordered a glass of wine w dinner *Plan: patient will require another midnight stay which will make her IP status / having fx on left side, both upper and lower ext will make it difficult to do ADL's/ IP rehab evaluation ordered. she lives alone. Patient currently on medical leave from work and was to return Tuesday/ unlikely to do this/ will have CM get involved and f/u with her employer. Subjective: Afshan said her pain is well managed. Objective: Vital Signs Temp Pulse Resp BP Pulse Ox 36.7 C 71 17 141/96 H 93 03/20/17 07:52 03/20/17 07:52 03/20/17 07:52 03/20/17 07:52 03/20/17 07:52 Laboratory Results 03/20/17 04:34 03/20/17 04:34 03/19/17 03/20/17 03/21/17 05:59 05:59 05:59 Intake Total 2000 Output Total 900 Balance 1100 PT 13.6 SEC (12.0-15.0) 03/19/17 04:47 INR 1.05 (0.83-1.16) 03/19/17 04:47 - Physical Exam Constitutional: no apparent distress, appears nourished Eyes: PERRL Ears, Nose, Mouth, Throat: hearing normal Cardiovascular: regular rate and rhythym Respiratory: no respiratory distress Gastrointestinal: normoactive bowel sounds Skin: warm, other (good cms to left fingers, left toes) Musculoskeletal: no joint effusions, generalized weakness Psychiatric: interacting appropriately, not encephalopathic ICD10 Worksheet Patient Problems: Problems Problem Status Onset Closed bimalleolar fracture of left ankle Acute Fracture of left distal radius Acute Tibial plateau fracture Acute
[2017-03-20] MEDS ORDERED: BISACODYL 10 MG SUPP PR PRN (14:44)
[2017-03-20] MEDS ORDERED: POLYETHYLENE GLYCOL 3350 17 GM PKT PO PRN (14:44)
[2017-03-20] MEDS ORDERED: LACTULOSE 20 GM/30 ML UDCUP PO PRN (14:44)
[2017-03-20] MEDS ORDERED: MAGNESIUM HYDROXIDE 30 ML UDCUP PO PRN (14:44)
[2017-03-20] MEDS: ENOXAPARIN 40 MG/0.4 ML SYR SC SCH (14:54)
--- NOTE | 2017-03-20 15:07 | PDMN ---
Medical Necessity Medical necessity: C/M review: Pt. meets INPT criteria per [facility] S-100 Ankle Fracture, Closed, Open Reduction, Acute left trimalleolar ankle fracture, acute left distal radius fracture requiring 03/19/2017 surgery - ORIF of left trimallelolar fracture, ORIF of left distal radius fracture, failed therapy evals, new-requires 1-2 person assist with all ADLs including ambulation with platform walker, no weight bearing LLE, new-03/20/2017 hyponatremia, Na 130, comorbid depression, anxiety, nicotine dependence, alcohol use, hx wound infection, requiring IV Clindmycin Q 8 hrs, ongoing acute inpt PT/OT; antitipates > 2 MN LOS for ongoing medical necessity for eval and TX of above.
[2017-03-20] MEDS: WHITE WINE 120 ML BOTTLE PO SCH (18:42)
[2017-03-20] MEDS: SENNOSIDES/DOCUSATE SODIUM TAB PO SCH (20:44)
--- NOTE | 2017-03-20 21:01 | GOP ---
[f rep st] OPERATIVE REPORT DATE OF OPERATION: 03/18/17 SURGEON: Andi Handy MD ANESTHESIA: General. PREOPERATIVE DIAGNOSIS: 1. Left distal radius fracture (three-part intra-articular). 2. Left trimalleolar ankle fracture. POSTOPERATIVE DIAGNOSIS: 1. Left distal radius fracture (three-part intra-articular). 2. Left trimalleolar ankle fracture. 3. Left gastrocnemius contracture. PROCEDURE PERFORMED: 1. Open reduction and internal fixation of left three-part intra-articular distal radius fracture. 2. Open reduction and internal fixation of left trimalleolar ankle fracture without fixation of posterior malleolar fragment. 3. Left gastrocnemius recession. 4. Intraoperative use of fluoroscopy. FINDINGS: ESTIMATED BLOOD LOSS: Minimal. INDICATIONS: This patient is a 51-year-old who sustained a fall resulting in a left distal radius unstable fracture-dislocation. The patient presented to the emergency room. She underwent a provisional closed reduction of both fractures with satisfactory alignment. Based on the displaced intra-articular nature of her injury, it was recommended that operative treatment consisting of open reduction and internal fixation be pursued. The patient acknowledged she understood the potential risks of the operation, including, but not limited to, bleeding, infection, neurovascular damage, loss of limb function, malunion, nonunion, need for hardware removal, pain or functional limitations despite operative treatment, and anesthetic risks. She acknowledged she understood the potential risks, planned procedure, and postoperative plan well, and had all questions answered prior to surgery. She gave her consent for the operative procedure. DESCRIPTION OF PROCEDURE: The patient was brought to the operating after IV antibiotics were administered. She was placed in a supine position where general anesthetic was administered. Attention was initially directed toward the left distal radius. A tourniquet was placed on the left upper arm. A provisional closed reduction maneuver was performed. A Fernando wire was placed in a medial to lateral direction across the articular surface, stabilizing the articular segment in a reduced position. A volar approach to the distal radius was then utilized. Skin and subcutaneous tissue were sharply incised. Sharp dissection was carried through the volar retinaculum adjacent to the flexor carpi radialis. Dissection was then carried through the pronator musculature down to the volar aspect of the distal radius. Limited periosteal reflection was performed to allow for reduction of the fracture and subsequent plate placement. A volar locking distal radius plate (Synthes) was positioned along the distal radius and provisionally held with an olive wire. Plate position was confirmed to be favorable. The plate was then secured to the distal segment as it was held in anatomically reduced position with an initial 2.4 mm nonlocking screw and then subsequent 2.4 mm locking screws. Fluoroscopic views confirmed favorable positioning of the plate distally. Utilizing a Hohmann retractor to gain distraction through the plate, the plate was then distracted distally, reducing the fracture. The fracture was held in a reduced position. Definitive fixation was accomplished proximally with one 2.4 mm bicortical locking screw and two 2.7 mm bicortical nonlocking screws. Fluoroscopic views confirmed favorable reduction and hardware placement. Attention was directed toward closure. The volar retinaculum was closed with 2- 0 Vicryl suture in interrupted fashion. The tourniquet was deflated with no untoward bleeding seen. Subcutaneous tissue was closed with 2-0 Vicryl suture in interrupted fashion and the skin was closed with 4-0 nylon interrupted sutures. 0.5% Marcaine without epinephrine was injected in the wound sites. The wounds were dressed with sterile Adaptic, 4 x 4, and Kerlix. Attention was then directed toward the ankle. Keeping the back table sterile, drapes were reapplied after placing a tourniquet on the left upper thigh. A bump was placed under the left hip and shoulder. After Boston wrap exsanguination , the tourniquet was inflated to 250. Attention was initially directed toward the fibula. A longitudinal incision was made over the lateral aspect of the distal fibula. Skin and subcutaneous tissue were sharply incised. Sharp dissection was carried dorsal to the peroneal tendons. A markedly comminuted distal fibular fracture was noted. In order to support the posterior aspect, a 6-hole quarter tubular plate was placed along the posterior aspect of the distal fibula. Just proximal to the fracture plane, a 2.7 mm cortical screw was placed in a posterior to anterior direction through the plate. An additional 2.7 mm bicortical screw was placed in the most proximal hole of the plate. To cradle the anterior comminuted segments, a 2.0 mm DC plate was contoured. Just proximal to the fracture plane, a 2.4 mm cortical screw was placed in an anterior to posterior direction with an additional 2.4 mm cortical screw placed in the most proximal hole. Multiple additional 2.4 mm screws were placed through the distal aspect of the plate. Through the posterior plate, an additional 2.4 mm screw was placed in one of the more distal holes. Fluoroscopic views confirmed favorable overall alignment and hardware placement. Attention was directed towards closure. The deep tissue was closed with 2-0 Vicryl suture in interrupted fashion, subcutaneous tissue closed with 3-0 Vicryl suture in interrupted fashion, and skin closed with 4-0 nylon interrupted vertical mattress sutures. Attention was directed medially. Upon removal of the splint, there was noted to be severe compromise of the medial skin. There were sanguinous fracture blisters with an area of deep skin compromise which was concerning for development of a full-thickness eschar. As the ankle remained markedly unstable and fixation of the medial complex could be accomplished with an incision outside this area, it was felt that proceeding with an incision in this area would be prudent. An oblique incision was made starting anteriorly and curving posteriorly along the distal aspect of the medial malleolus. Skin and subcutaneous tissues were sharply incised. Care was taken to avoid damage to the saphenous vein. A very comminuted distal medial malleolus segment was found. This was held provisionally with a Fernando wire. Attempts at fixation with 2.4 mm screws were tried but based on the comminution, this did not prove satisfactory. A 2.0 mm T plate was then contoured to cradle the fragments. This additionally did not provide adequate support to the comminuted segments. It was felt that the fracture fragments could not be stabilized and that the fixation into the deltoid would be more preferable. A 2.9 mm JuggerKnot suture anchor was placed in the medial malleolus. The suture ends were wrapped inferior to the fracture fragments, gaining favorable purchase in the deltoid. These were secured. This provided good medial stability. After stabilizing the medial complex, the ankle was attempted to be dorsiflexed. A significant amount of gastrocnemius equinus was present. It was difficult to hold the ankle stable with the equinus contracture. It was felt that release of the gastroc would be prudent to enable maintenance of fracture reduction. A longitudinal incision was made along the medial aspect of the lower leg in the mid gastroc level. Skin and subcutaneous tissue were sharply incised. The superficial posterior compartment fascia was incised in line with the skin incision. The interval between the gastroc and the soleus was bluntly dissected. Utilizing a speculum for retraction, the anterior tendon of the gastroc was released. Attention was directed toward closure. The subcutaneous tissue was closed with 3-0 Vicryl suture in interrupted fashion and the skin was closed with 4-0 nylon interrupted sutures. At the distal medial incision, subcutaneous tissue was not amenable to subcutaneous sutures. 3.0 mm nylon interrupted sutures utilizing a combination of vertical mattress and Donati-Allgower was used. The wounds were dressed with sterile Adaptic, 4 x 4, and Webril, and the leg was placed in a below-knee splint. The wrist was placed in a volar fiberglass splint. The patient was taken to the recovery room, extubated, in stable condition postoperatively. All sponge, needle and instrument counts were reported to be intact. DRAINS: None. COMPLICATIONS: None. PLAN: The patient will be admitted for medical management. She will be nonweightbearing on her operative extremities. /[id number]/MODL MTDD
[2017-03-21] MEDS: HYDROCODONE/APAP 5/325 TAB PO PRN ×2 (03:11→09:34)
--- NOTE | 2017-03-21 06:03 | SOAPPROG ---
SOAP Progress Note Assessment/Plan: Assessment: S/P ORIF L distal radius / L trimalleolar ankle fx Pain tolerable el po up with PT Splints intact No D/C L fingers and toes with good cap refill, + sensation Able to flex/ext fingers and toes Plan: OOB/PT OK for D/C or transfer toSNF or rehab from ortho standpoint when medically stable F/U 03/28/17 03/20/17 09:24 03/21/17 06:01 Pain improving Up with PT El po Splints intact NV unchanged Con't OOB/PT OK for D/C from ortho standpoint Objective: Vital Signs Temp Pulse Resp BP Pulse Ox 36.8 C 83 16 146/93 H 91 L 03/21/17 03:13 03/21/17 03:13 03/21/17 03:13 03/21/17 03:13 03/21/17 03:13 03/20/17 03/21/17 03/22/17 05:59 05:59 05:59 Intake Total 1000 Balance 1000 PT 13.6 SEC (12.0-15.0) 03/19/17 04:47 INR 1.05 (0.83-1.16) 03/19/17 04:47 ICD10 Worksheet Patient Problems: Problems Problem Status Onset Closed bimalleolar fracture of left ankle Acute Fracture of left distal radius Acute Tibial plateau fracture Acute
[2017-03-21] MEDS: SENNOSIDES/DOCUSATE SODIUM TAB PO SCH ×2 (09:34→21:02)
[2017-03-21] MEDS: FLUoxetine 20 MG CAP PO SCH (09:34)
[2017-03-21] MEDS: ENOXAPARIN 40 MG/0.4 ML SYR SC SCH (09:35)
--- NOTE | 2017-03-21 09:41 | HOSPPROG ---
Hospitalist Progress Note Assessment/Plan: Afshan is a 51-year-old female who presented the emergency room after sustaining a mechanical fall at home. She is moving items from her home to her car and there are several steps. She feels like her knee may have given out and she fell. *Bimalleolar fx Status post ORIF *Left wrist fx Status post ORIF meds ordered *Anxiety and Depression home meds resumed/Prozac resumed has a therapist she sees in the OP setting asked Dayanara Rod to see * hyponatremia with a sodium of 130 *hx of wound infection will monitor s/sx *nicotine dependence patch provided *alcohol use drinks wine at night/ 2-3 glasses ordered a glass of wine w dinner *dvt prophylaxis: LMWH *Plan: to get evaluated by IP rehab/ CM evaluating her insurance to see if she could go to SNF vs home w home care Subjective: Afshan is feeling better today/ able to mobilize a bit better. Objective: Vital Signs Temp Pulse Resp BP Pulse Ox 36.9 C 90 16 144/98 H 92 03/21/17 08:00 03/21/17 08:00 03/21/17 08:00 03/21/17 08:00 03/21/17 08:00 03/20/17 03/21/17 03/22/17 05:59 05:59 05:59 Intake Total 1750 Output Total 150 Balance 1750 -150 PT 13.6 SEC (12.0-15.0) 03/19/17 04:47 INR 1.05 (0.83-1.16) 03/19/17 04:47 - Physical Exam Constitutional: no apparent distress, appears nourished, not in pain Eyes: PERRL Ears, Nose, Mouth, Throat: hearing normal Respiratory: no respiratory distress Skin: warm Musculoskeletal: other (good CMS on left fingers and left toes) Neurologic: AAOx3 Psychiatric: interacting appropriately, not anxious ICD10 Worksheet Patient Problems: Problems Problem Status Onset Closed bimalleolar fracture of left ankle Acute Fracture of left distal radius Acute Tibial plateau fracture Acute
--- NOTE | 2017-03-21 16:41 | ASMTCMCOM ---
CM Note CM Note Notes: Pt does not qualify for [facility] inakt rehab, will need longer LOS and is agreeable to SNF. Referrals sent to [facility] and [facility]. 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 Pt will notify CM if she needs anything for work regarding current hospitalization. Date Signed: 03/21/2017 04:41 PM Electronically Signed By:CRUZ Milligan
[2017-03-21] MEDS: WHITE WINE 120 ML BOTTLE PO SCH (21:02)
[2017-03-22] MEDS: FLUoxetine 20 MG CAP PO SCH (09:32)
[2017-03-22] MEDS: ENOXAPARIN 40 MG/0.4 ML SYR SC SCH (09:32)
[2017-03-22] MEDS: HYDROCODONE/APAP 5/325 TAB PO PRN (09:38)
[2017-03-22] MEDS: SENNOSIDES/DOCUSATE SODIUM TAB PO SCH (10:19)
--- NOTE | 2017-03-22 12:34 | ASMTCMCOM ---
CM Note CM Note Notes: Pt accepted at [facility], chooses [facility] who are pursing insurance authorization (can take 24 hours) Date Signed: 03/22/2017 12:34 PM Electronically Signed By:CRUZ Milligan
[2017-03-22 16:52] VITALS: BP 110/61; PULSE 60; RESP 16; TEMP 97.5; O2SAT 96
--- NOTE | 2017-03-22 16:53 | ASMTCMCOM ---
CM Note CM Note Notes: Eliana at [facility] reports [employer] authorization is in, pt can d/c when medically stable. Date Signed: 03/22/2017 04:52 PM Electronically Signed By:CRUZ Milligan
--- NOTE | 2017-03-22 17:04 | PDDCSUM ---
Discharge Summary Discharge Summary: DISCHARGE SUMMARY FOLLOW-UP ITEMS: Repeat imaging of extremity at orthopedic appointment DATE OF ADMISSION: 03/18/2017 DATE OF DISCHARGE: 03/22/2017 DISCHARGE DIAGNOSES: 1. Acute trimalleolar fracture left lower extremity 2. Acute left humerus fracture 3. Acute hyponatremia CONSULTATIONS: Orthopedics by Dr. Andi Handy PROCEDURES / IMAGING: ORIF 03/19/2017 CHIEF COMPLAINT: Acute mechanical fall SUBJECTIVE: Patient is feeling well at time discharge, she is moving her bowels, panel manage PHYSICAL EXAM ON DISCHARGE: Systolic blood pressure is 150, heart rate 90, if it coming on room air, with sensation intact in distal fingers upper extremity with cap refill comma ecchymoses over the left antecubital fossa without any induration tenderness or erythema, likely rotation laterally comma sounds are present, alert awake oriented x3 LABS ON DISCHARGE: Serum sodium 130, creatinine 0.6 HOSPITAL COURSE BY PROBLEM: 1. Acute trimalleolar fracture and left humerus fracture. The patient experienced acute fractures after experiencing a mechanical fall resulting trauma. She underwent ORIF by Dr. Handy and will receive DVT prophylaxis with Lovenox 40 for the next 14 days or until her cast on her left lower extremity is removed. She will follow up with Dr. Saucedo next week, has received oral pain medications will continue them moving forward. She is also on a bowel regimen to avoid constipation. 2. Acute hyponatremia. Secondary to polydipsia, recommended moderate increased free water intake, avoiding further IV fluids. DISCHARGE MEDICATIONS: Please see official discharge medication reconciliation sheet in chart [place] as needed, Senokot scheduled while on [place], Lasix 40 mg daily for 2 weeks or in cast removed DISCHARGE INSTRUCTIONS: Follow up with Dr. Lazo next week, Dr. Merchant after discharge from residential facility. TIME SPENT: Greater than 30 minutes were spent on direct patient care, as well as discharge planning and preparation.
--- NOTE | 2017-03-22 17:06 | PDIAF ---
- Diagnosis Diagnosis: Acute ankle/arm fracture Code Status: Full Code - Medication Management Discharge Medications: Medications to Continue on Transfer Acetaminophen [Tylenol 325mg (*)] 650 mg PO Q6H PRN 03/18/17 [Last Taken Unknown ] Fluoxetine HCl [Prozac 40 mg] 40 mg PO DAILY 03/18/17 [Last Taken 03/18/17] Enoxaparin [Lovenox 40 MG (*)] 40 mg SC DAILY #14 syr 03/22/17 [Last Taken Unknown] Hydrocodone/APAP 5/325 [[place] 5/325 (*)] 1 - 2 tab PO Q4HRS PRN tab 03/22/17 [ Last Taken Unknown] Nicotine [Nicoderm Cq 14 mg (*)] 14 mg TD DAILY PRN patch 03/22/17 [Last Taken Unknown] Polyethylene Glycol 3350 [Miralax 17 gm (*)] 17 gm PO DAILY PRN pkt 03/22/17 [ Last Taken Unknown] Sennosides/Docusate Sodium [Senokot-S] 1 - 2 tab PO BID tab 03/22/17 [Last Taken Unknown] 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 PICC Care - Routine: N/A - Orders Services needed: Home Care, Registered Nurse, Physical Therapy, Occupational Therapy Home Care Face to Face: I certify that this patient was under my care and that I had the required [id number] encounter meeting the encounter requirements on the discharge day. My findings support the fact that the patient is homebound as defined in Home Care Face to Face Continued: CMS Chapter 7 Medicare Benefits Manual 30.1.1 , The condition of the patient is such that there exists a normal inability to leave home and consequently, leaving home would require a considerable and taxing effort. Oxygen: NA Diet Recommendation: no restrictions on diet Michael: Not applicable Wound Care Instructions: casts to remain in place, will be reassessed at Dr. Handy's office - Follow Up Care Current Providers and Referrals: Bianca Bansal PA [Primary Care Provider] - 3 days of d/c SNF/Rehab Andi Handy MD [Medical Doctor] - (schedule follow-up appointment for next Tuesday)
[2017-03-22] MEDS: WHITE WINE 120 ML BOTTLE PO SCH (18:02)
--- NOTE | 2017-03-23 11:32 | ASMTCMCOM ---
CM Note CM Note Notes: Yesterday pt d/c to [facility]. Date Signed: 03/23/2017 11:31 AM Electronically Signed By:CRUZ Milligan
--- NOTE | 2017-03-23 11:33 | ASDISCHSUM ---
Discharge Information Plan Status:SNF Medically Cleared to Leave: Discharge Date:03/22/2017 06:02 PM CM D/C Disposition:Snf Facility ADT D/C Disposition:Snf Facility Projected Discharge Date:03/22/2017 11:00 AM Transportation at D/C:Wheelchair Van Discharge Delay Reason: Follow-Up Date:03/22/2017 11:00 AM Discharge Slot: Final Diagnosis: Placement Information Referral Type:*Jail/SNF Referral ID:[id number] Provider Name:[facility] Address 1:[address] Address 2: City:[place] Selection Factors: State:[place] Patient Contact Information Contact Name:MAGALI Relationship: Address: Work Phone: City: [facility] Phone: [facility] Code: Email: Financial Information Financial Class:[facility] Primary Plan Desc:[facility]ERNA[facility] OPEN [facility] LOC[facility] Primary Plan Number:[id number] Secondary Plan Desc: Secondary Plan Number: Assessment Information [facility] CM Progress Note CM Note CM Note Notes: Pt fell at home, lives alone, has hx anxiety/depression and drinks 2-3 glasses wine daily per H&P. She went to surg today, will see how she does w/therapies tomorrow and plan for dc as needed. Date Signed: 03/19/2017 07:04 PM Electronically Signed By:Shasha Lindo RN [facility] CM Progress Note CM Note CM Note Notes: Pt does not qualify for [facility] inwat rehab, will need longer LOS and is agreeable to SNF. Referrals sent to [facility] 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 Pt will notify CM if she needs anything for work regarding current hospitalization. Date Signed: 03/21/2017 04:41 PM Electronically Signed By:CRUZ Milligan [facility] CM Progress Note CM Note CM Note Notes: Pt accepted at [facility], chooses [facility] who are pursing insurance authorization (can take 24 hours) Date Signed: 03/22/2017 12:34 PM Electronically Signed By:CRUZ Milligan [facility] CM Progress Note CM Note CM Note Notes: Eliana at [facility] reports [employer] authorization is in, pt can d/c when medically stable. Date Signed: 03/22/2017 04:52 PM Electronically Signed By:CRUZ Milligan [facility] CM Progress Note CM Note CM Note Notes: Yesterday pt d/c to [facility]. Date Signed: 03/23/2017 11:31 AM Electronically Signed By:CRUZ Milligan Intervention Information
== END 2017-03-22 18:02 | DRG 493 ==
LOC: F3N 23:55 → OBSVTOIN 03-20 13:47
PROVIDERS: ADMIT Family Medicine; ATTEND Family Medicine
PROC: 0PSJ3ZZ Reposition Left Radius, Percutaneous Approach (ICD-10-PCS; 2017-03-18)
PROC: 0SSG3ZZ Reposition Left Ankle Joint, Percutaneous Approach (ICD-10-PCS; 2017-03-18)
PROC: 0QSK04Z Reposition Left Fibula with Internal Fixation Device, Open Approach (ICD-10-PCS; principal; 2017-03-19 14:00)
PROC: 0QSH04Z Reposition Left Tibia with Internal Fixation Device, Open Approach (ICD-10-PCS; principal; 2017-03-19 14:00)
PROC: 0PSJ04Z Reposition Left Radius with Internal Fixation Device, Open Approach (ICD-10-PCS; principal; 2017-03-19 14:00)
DX: S82.852A Displaced trimalleolar fracture of left lower leg, initial encounter for closed fracture (principal); S52.502A Unspecified fracture of the lower end of left radius, initial encounter for closed fracture; S52.602A Unspecified fracture of lower end of left ulna, initial encounter for closed fracture; W10.9XXA Fall (on) (from) unspecified stairs and steps, initial encounter; Y92.008 Other place in unspecified non-institutional (private) residence as the place of occurrence of the external cause; E87.1 Hypo-osmolality and hyponatremia; Z96.652 Presence of left artificial knee joint; F41.8 Other specified anxiety disorders; Z72.89 Other problems related to lifestyle; F17.210 Nicotine dependence, cigarettes, uncomplicated
CPT/HCPCS: 96374; 97116-GP; 97161-GP; 97166-GO; 97530-GP; 97535-GO; C1713; G0008; G0009; G0378; J1100; J1170; J1650; J2001; J2060; J2250; J2405; J2704; J3010; J3490